=== PATIENT | male | born 1940 | race Caucasian/White ===

== ENCOUNTER 2025-06-22 09:30 | Outpatient (RCR) | payer MEDICARE, OTHER, SELFPAY ==
[2025-05-26 09:27] VITALS: BP 128/55; PULSE 64; RESP 16; TEMP 36.6; O2SAT 96
[2025-06-01 09:20] VITALS: BP 124/55; PULSE 63; RESP 16; TEMP 36.8; O2SAT 97
[2025-06-09 09:42] VITALS: BP 138/54; PULSE 62; RESP 18; TEMP 36.4
[2025-06-16 09:24] VITALS: BP 159/76; PULSE 58; RESP 16; TEMP 36.6; O2SAT 96
[2025-06-22 09:49] VITALS: BP 131/58; PULSE 61; RESP 16; TEMP 36.8; O2SAT 96
[2025-06-22 10:07] LABS: Hematocrit 36.5 % (42.0-52.0); Hemoglobin 11.0 g/dl (14.0-18.0); Mean Corpuscular HGB Conc 30.1 g/dl (31.0-36.0); Mean Corpuscular Hemoglobin 23.9 pg (27.0-33.0); Mean Corpuscular Volume 79.2 fL (80.0-98.0); NRBC Abs Auto 0.000 X10*3/uL (0.0-0.012); NRBC Pct Auto 0.0 /100WBC (0.0-0.2); Platelet Count 195 X10*3/uL (160-400); Red Blood Count 4.61 X10*6/uL (4.60-5.80); White Blood Count 6.5 X10*3/uL (4.8-10.8)
[2025-06-22 10:44] LABS: Ferritin 108 ng/mL (20-250)
== END 2025-06-22 11:31 | disposition home or self-care (01) ==
LOC: HO.INF 09:30
PROVIDERS: PCP Internal Medicine; Visit Provider Nurse Practitioner Family
DX: D64.9 Anemia, unspecified (principal)
CPT/HCPCS: 36415; 82728; 85027; 96365; 96374; J1756

== ENCOUNTER → 2025-07-14 10:40 | Outpatient (BNV) | payer MEDICARE, OTHER, SELFPAY | PROVIDERS: PCP Internal Medicine; Referring Provider Internal Medicine; Visit Provider Internal Medicine | DX: D64.9 Anemia, unspecified (principal) | CPT/HCPCS: 99214; G2211 ==